=== PATIENT | male | born 1955 | race African-American/Black ===

== ENCOUNTER 2021-06-22 07:32 | Day surgery (SDC) | payer OTHER, BC ==
[2021-06-21 12:53] VITALS: BMI 32.1
[2021-06-22] MEDS ORDERED: PROPOFOL 20 ML ONE ×4 (07:43)
[2021-06-22] MEDS ORDERED: LIDOCAINE HCL/PF 2% SDV 5ML VIAL ONE (07:43)
[2021-06-22 09:13] VITALS: BP 120/76; PULSE 70; TEMP 97.6
== END 2021-06-22 09:13 | disposition home or self-care (01) ==
LOC: FASU-ENDO 07:32
PROVIDERS: ATTEND Internal Medicine Gastroenterology
PROC: 0DBK8ZX Excision of Ascending Colon, Via Natural or Artificial Opening Endoscopic, Diagnostic (ICD-10-PCS; principal; 2021-06-22 08:13)
DX: Z12.11 Encounter for screening for malignant neoplasm of colon (principal); D12.2 Benign neoplasm of ascending colon; K57.30 Diverticulosis of large intestine without perforation or abscess without bleeding; K64.0 First degree hemorrhoids